=== PATIENT | female | born 2000 | race American Indian/Alaskan Native ===

== ENCOUNTER 2018-07-17 14:03 | Emergency (ER) | payer SELFPAY ==
--- NOTE | 2018-07-17 14:35 | Emergency Department Report ---
Blank Doc - Documentation Documentation: This is a 17-year-old female that presents with umbilical abdominal pain inter mittent for 1 year. Patient stated that pain is getting worse. Patient denies any nausea or vomiting. Denies any other complaints. This initial assessment diagnostic orders/clinical plan/treatment(s) is/are subject to change based on patient's health status, clinical progression and re- assessment by fellow clinical providers in the ED. Further treatment and workup at subsequent clinical providers discretion. Patient/guardians urged not to elope from ED s their condition may be serious if not clinically assessed and managed. Initial orders include: 1-Patient sent to [facility] for further evaluation and treatment 2- labs
[2018-07-17 15:27] LABS: Basophils % (Auto) 0.4 % (0.0-1.8); Eosinophils # (Auto) 0.1 K/mm3 (0.0-0.4); Eosinophils % (Auto) 1.3 % (0.0-4.3); Hematocrit 44.2 % (30.3-42.9); Lymphocytes # (Auto) 2.8 K/mm3 (1.2-5.4); Mean Corpuscular HGB Conc 34 % (30-34); Mean Corpuscular Volume 92 fl (79-97); Monocytes # (Auto) 0.7 K/mm3 (0.0-0.8); Monocytes % (Auto) 7.1 % (0.0-7.3); Platelet Count 294 K/mm3 (140-440); Red Blood Count 4.79 M/mm3 (3.65-5.03); Red Cell Distribution Width 13.7 % (13.2-15.2)
[2018-07-17 16:07] LABS: Alanine Aminotransferase 58 units/L (7-56); Albumin 4.3 g/dL (3.9-5); BUN/Creatinine Ratio 18; Blood Urea Nitrogen 11 mg/dL (7-17); Calcium 9.6 mg/dL (8.4-10.2); Hemolysis Index 18
--- NOTE | 2018-07-17 19:00 | Emergency Department Report ---
ED Abdominal Pain HPI - General Chief Complaint: Abdominal Pain Stated Complaint: STOMACH PAIN Time Seen by Provider: 07/17/18 14:31 Source: patient Mode of arrival: Ambulatory Limitations: No Limitations - History of Present Illness Initial Comments: This is a 17-year-old female that presents to the emergency room with abdominal pain that started yesterday. Patient reports pain is stabbing sensation and is intermittently and lasts for several minutes. She currently reports pain is 3 out of 10 on pain scale. Patient states she was diagnosed with the umbilical hernia when she was 8. She reports never having any issues with it until yesterday. States pain is on the left lower quadrant and near umbilical. She denies nausea, vomiting, diarrhea, dysuria, frequency, urgency, vaginal bleeding, or vaginal discharge. Her last period was 06/13/2018 0. Complaint: abdominal pain Onset/Timin -: days(s) Location: periumbilical Radiation: none Migration to: no migration Severity: mild Severity scale (0 -10): 5 Quality: stabbing Consistency: intermittent Improves With: nothing Worsens With: nothing Associated Symptoms: denies other symptoms - Related Data LMP Date: 06/08/18 Allergies Allergy/AdvReac Type Severity Reaction Status Date / Time No Known Allergies Allergy Unverified 07/17/18 14:37 ED Review of Systems ROS: Stated complaint: STOMACH PAIN Other details as noted in HPI Constitutional: denies: chills, fever Respiratory: denies: cough, shortness of breath, wheezing Cardiovascular: denies: chest pain, palpitations Gastrointestinal: abdominal pain, other (mass near the umbilical and left lower quadrant). denies: nausea, diarrhea Skin: denies: rash, lesions Neurological: denies: headache, weakness, paresthesias Psychiatric: denies: anxiety, depression ED Past Medical Hx - Past Medical History Previous Medical History?: No - Surgical History Past Surgical History?: No - Social History Smoking Status: Current Some Day Smoker Substance Use Type: None ED Physical Exam - General Limitations: No Limitations General appearance: alert, in no apparent distress, obese (morbidly obese) - Respiratory Respiratory exam: Present: normal lung sounds bilaterally. Absent: respiratory distress - Cardiovascular Cardiovascular Exam: Present: regular rate, normal rhythm. Absent: systolic murmur, diastolic murmur, rubs, gallop - GI/Abdominal GI/Abdominal exam: Present: soft, normal bowel sounds, mass (palpable umbilical hernia). Absent: distended, tenderness, guarding, rebound, rigid, organomegaly, bruit, pulsatile mass, hernia - Back Exam Back exam: Present: normal inspection - Neurological Exam Neurological exam: Present: alert, oriented X3, normal gait - Psychiatric Psychiatric exam: Present: normal affect, normal mood - Skin Skin exam: Present: warm, dry, intact, normal color. Absent: rash ED Course Vital Signs 07/17/18 07/17/18 14:35 19:39 Temperature 97.3 F L 97.8 F Pulse Rate 80 63 Respiratory 16 15 Rate Blood Pressure 129/77 106/72 O2 Sat by Pulse 98 99 Oximetry ED Medical Decision Making - Lab Data Result diagrams: 07/17/18 15:17 07/17/18 15:17 Lab Results 07/17/18 07/17/18 07/17/18 Range/Units 15:17 15:17 15:17 WBC 9.3 (4.5-11.0) K/mm3 RBC 4.79 (3.65-5.03) M/mm3 Hgb 15.0 H (10.1-14.3) gm/dl Hct 44.2 H (30.3-42.9) % MCV 92 (79-97) fl MCH 31 (28-32) pg MCHC 34 (30-34) % RDW 13.7 (13.2-15.2) % Plt Count 294 (140-440) K/mm3 Lymph % (Auto) 30.0 (13.4-35.0) % Ford % (Auto) 7.1 (0.0-7.3) % Eos % (Auto) 1.3 (0.0-4.3) % Baso % (Auto) 0.4 (0.0-1.8) % Lymph # 2.8 (1.2-5.4) K/mm3 Ford # 0.7 (0.0-0.8) K/mm3 Eos # 0.1 (0.0-0.4) K/mm3 Baso # 0.0 (0.0-0.1) K/mm3 Seg Neutrophils % 61.2 (40.0-70.0) % Seg Neutrophils # 5.7 (1.8-7.7) K/mm3 Sodium 141 (137-145) mmol/L Potassium 4.4 (3.6-5.0) mmol/L Chloride 102.3 (98-107) mmol/L Carbon Dioxide 25 (22-30) mmol/L Anion Gap 18 mmol/L BUN 11 (7-17) mg/dL Creatinine 0.6 L (0.7-1.2) mg/dL Estimated GFR > 60 ml/min BUN/Creatinine Ratio 18 % Glucose 81 (65-100) mg/dL Calcium 9.6 (8.4-10.2) mg/dL Total Bilirubin 0.40 (0.1-1.2) mg/dL AST 41 H (5-40) units/L ALT 58 H (7-56) units/L Alkaline Phosphatase 111 (35-129) units/L Total Protein 7.4 (6.3-8.2) g/dL Albumin 4.3 (3.9-5) g/dL Albumin/Globulin Ratio 1.4 % HCG, Qual Negative (Negative) - Radiology Data Radiology results: report reviewed EXAM: US ABDOMEN LIMITED HISTORY: palpable mass left lower quadrant TECHNIQUE: Ultrasound abdomen PRIORS: None. FINDINGS: Visualized portions of the liver parenchyma are unremarkable No evidence for cholelithiasis or gallbladder wall thickening. Common bile duct is within normal limits 0.4 centimeters maximum diameter. Right kidney is 11.2 x 5.0 x 4.5 centimeters. No evidence for hydronephrosis Area of concern in left lower quadrant demonstrates no sonographically identifiable abnormality IMPRESSION: Normal No sonographically identified abnormality in area of concern. - Medical Decision Making This is a 17-year-old female presents with left-sided abdominal pain and mass. Patient was examined by me. Vitals are normal and patient is in no acute distress. Obtained a labs and abdominal ultrasound. Liver enzymes elevated. Patient will be instructed to have repeat CMP around 30 days by primary care provider. All of the labs are unremarkable. Ultrasound dictated by radiologist report reviewed by myself. Normal No sonographically identified abnormality in area of concern. Patient informed of results. Referral to primary care provider for continued care. Plan discussed with patient to discharge home and treat outpatient. Patient discharged home in stable condition. Follow up with PCP in 2-3 days. Critical care attestation.: If time is entered above; I have spent that time in minutes in the direct care of this critically ill patient, excluding procedure time. ED Disposition Clinical Impression: Elevated liver enzymes Abdominal pain Qualifiers: Abdominal location: left lower quadrant Qualified Code(s): R10.32 - Left lower quadrant pain Disposition: TO HOME OR SELFCARE Is pt being admited?: No Does the pt Need Aspirin: No Condition: Stable Instructions: Abdominal Pain (ED) Additional Instructions: Have a repeat chemistry labs drawn and one month by primary care provider to monitor liver enzymes. Return to the emergency room if pain increases, nausea, vomiting, and chest pain. Referrals: ASAD BAZAN MD [Primary Care Provider] - 3-5 Days [facility] [Outside] - 3-5 Days [facility] [Outside] - 3-5 Days [facility] [Outside] - 3-5 Days Time of Disposition: 21:47
[2018-07-17 19:43] VITALS: BP 106/72
--- NOTE | 2018-07-17 21:35 | Ultrasound Report ---
FINAL REPORT EXAM: US ABDOMEN LIMITED HISTORY: palpable mass left lower quadrant TECHNIQUE: Ultrasound abdomen PRIORS: None. FINDINGS: Visualized portions of the liver parenchyma are unremarkable No evidence for cholelithiasis or gallbladder wall thickening. Common bile duct is within normal limits 0.4 centimeters maximum diameter. Right kidney is 11.2 x 5.0 x 4.5 centimeters. No evidence for hydronephrosis Area of concern in left lower quadrant demonstrates no sonographically identifiable abnormality IMPRESSION: Normal No sonographically identified abnormality in area of concern.
== END 2018-07-17 21:58 | disposition home or self-care (01) ==
LOC: ED 14:03
DX: R10.32 Left lower quadrant pain (principal); R79.89 Other specified abnormal findings of blood chemistry; F17.200 Nicotine dependence, unspecified, uncomplicated
CPT/HCPCS: 36415; 76705; 80053; 84703; 85025

== ENCOUNTER 2018-11-07 10:01 | Emergency (ER) | payer SELFPAY ==
[2018-11-07 10:08] VITALS: BP 130/75
[2018-11-07 11:04] LABS: Bilirubin,Urine NEG (Negative); Blood,Urine NEG (Negative); Color,Urine Yellow (Yellow); HCG Qualitative,Urine Positive (Negative); Mucus,Urine FEW /HPF; Protein,Urine <15 mg/dL mg/dL (Negative)
--- NOTE | 2018-11-07 13:23 | Ultrasound Report ---
PROCEDURE: US OB <= 14 WEEKS FETUS TECHNIQUE: Early obstetrical ultrasound performed. Transabdominal and transvaginal imaging HISTORY: pelvic cramping and positive home preg test COMPARISON: None FINDINGS: No gestational sac is seen in the uterus. Endometrial thickness is 13 mm. Right ovary measures 2.3 x 2.2 x 1.8 cm. Left ovary measures 3.3 x by 1 4 x 1.9 cm. There is a tiny c yst or follicle in each ovary, larger on the left measures 1.4 cm. No abnormal adnexal mass seen. There is no free fluid. IMPRESSION: There is no visualized intrauterine gestational sac, pelvic free fluid or abnormal adnex al mass. In the setting of a positive test, differential considerations include spontaneous , early nonvisualized intrauterine , and ectopic . Correlate clinically. This document is electronically signed by Noelle Vázquez MD., November 07 2018 01:21:03 PM ET
--- NOTE | 2018-11-07 13:24 | Ultrasound Report ---
PROCEDURE: US OB TRANSVAGINAL TECHNIQUE: Early obstetrical ultrasound performed. Transabdominal and transvaginal imaging HISTORY: pelvic cramping and positive home preg test COMPARISON: None FINDINGS: No gestational sac is seen in the uterus. Endometrial thickness is 13 mm. Right ovary measures 2.3 x 2.2 x 1.8 cm. Left ovary measures 3.3 x by 1 4 x 1.9 cm. There is a tiny c yst or follicle in each ovary, larger on the left measures 1.4 cm. No abnormal adnexal mass seen. There is no free fluid. IMPRESSION: There is no visualized intrauterine gestational sac, pelvic free fluid or abnormal adnex al mass. In the setting of a positive test, differential considerations include spontaneous , early nonvisualized intrauterine , and ectopic . Correlate clinically. This document is electronically signed by Noelle Vázquez MD., November 07 2018 01:21:40 PM ET
--- NOTE | 2018-11-16 11:10 | Emergency Department Report ---
ED Female HPI - General Chief complaint: Abdominal Pain Stated complaint: POSITIVE PREG TEST/CRAMPS/PAIN Time Seen by Provider: 11/07/18 10:46 Source: patient Mode of arrival: Ambulatory Limitations: No Limitations - History of Present Illness MD Complaint: pelvic pain -: days(s) (2) Radiation: non-radiating Severity scale (0 -10): 5 Quality: cramping Consistency: constant Improves with: none Worsens with: none Are you Now?: Yes (took at home preg test unsure of gestational age) Associated Symptoms: denies other symptoms - Related Data Previous Rx's Medication Instructions Recorded Last Taken Type 21/Iron Fu/Folic Acid 1 each PO DAILY #30 tablet 11/07/18 Unknown Rx [ Complete Caplet] Allergies Allergy/AdvReac Type Severity Reaction Status Date / Time No Known Allergies Allergy Verified 11/07/18 10:02 ED Review of Systems ROS: Stated complaint: POSITIVE PREG TEST/CRAMPS/PAIN Other details as noted in HPI Comment: All other systems reviewed and negative ED Past Medical Hx - Past Medical History Previous Medical History?: No - Surgical History Past Surgical History?: No - Social History Smoking Status: Never Smoker Substance Use Type: None - Medications Home Medications: Home Medications Medication Instructions Recorded Confirmed Last Taken Type 21/Iron Fu/Folic Acid 1 each PO DAILY #30 tablet 11/07/18 Unknown Rx [ Complete Caplet] ED Physical Exam - General Limitations: No Limitations General appearance: alert, in no apparent distress - Head Head exam: Present: atraumatic, normocephalic - Eye Eye exam: Present: normal appearance - ENT ENT exam: Present: mucous membranes moist - Neck Neck exam: Present: normal inspection - Respiratory Respiratory exam: Absent: respiratory distress - GI/Abdominal GI/Abdominal exam: Present: soft, tenderness (lower abd pain), normal bowel sounds. Absent: distended, guarding, rebound - Extremities Exam Extremities exam: Present: normal inspection - Back Exam Back exam: Present: normal inspection - Neurological Exam Neurological exam: Present: alert, oriented X3 - Psychiatric Psychiatric exam: Present: normal affect, normal mood - Skin Skin exam: Present: warm, dry, intact, normal color. Absent: rash ED Course Vital Signs 11/07/18 10:07 Temperature 98.2 F Pulse Rate 94 H Respiratory 16 Rate Blood Pressure 130/75 O2 Sat by Pulse 100 Oximetry ED Medical Decision Making - Lab Data Lab Results 11/07/18 11/07/18 Range/Units 10:21 10:56 HCG, Quant 310.8 H (0-4) mIU/mL Urine Color Yellow (Yellow) Urine Turbidity Cloudy (Clear) Urine pH 7.0 (5.0-7.0) Ur Specific Sprague 1.021 (1.003-1.030) Urine Protein <15 mg/dl (Negative) mg/dL Urine Glucose (UA) Neg (Negative) mg/dL Urine Ketones Neg (Negative) mg/dL Urine Blood Neg (Negative) Urine Nitrite Neg (Negative) Urine Bilirubin Neg (Negative) Urine Urobilinogen 2.0 (<2.0) mg/dL Ur Leukocyte Esterase Lg (Negative) Urine WBC (Auto) 7.0 H (0.0-6.0) /HPF Urine RBC (Auto) 3.0 (0.0-6.0) /HPF U Epithel Cells (Auto) 28.0 H (0-13.0) /HPF Urine Mucus Few /HPF Urine HCG, Qual Positive A (Negative) - Medical Decision Making [facility] [address] [place] [address] Ultrasound Report Signed Patient: SUZY NUNEZ MR#: [id number] : 2000 Acct:[id number] Age/Sex: 18 / F ADM Date: 11/07/18 Loc: ED Attending Dr: Ordering Physician: SHANE ZUÑIGA Date of Service: 11/07/18 Procedure(s): US OB transvaginal Accession Number(s): [id number] cc: SHANE ZUÑIGA PROCEDURE: US OB TRANSVAGINAL TECHNIQUE: Early obstetrical ultrasound performed. Transabdominal and transvaginal imaging HISTORY: pelvic cramping and positive home preg test COMPARISON: None FINDINGS: No gestational sac is seen in the uterus. Endometrial thickness is 13 mm. Right ovary measures 2.3 x 2.2 x 1.8 cm. Left ovary measures 3.3 x by 1 4 x 1.9 cm. There is a tiny cyst or follicle in each ovary, larger on the left measures 1.4 cm. No abnormal adnexal mass seen. There is no free fluid. IMPRESSION: There is no visualized intrauterine gestational sac, pelvic free fluid or abnormal adnexal mass. In the setting of a positive test, differential considerations include spontaneous , early nonvisualized intrauterine , and ectopic . Correlate clinically. This document is electronically signed by Noelle Vázquez MD., November 07 2018 01:21:40 PM ET Transcribed By: DONAL Dictated By: NOELLE VÁZQUEZ MD Electronically Authenticated By: NOELLE VÁZQUEZ MD Signed Date/Time: 11/07/18 1324 DD/ 1226 patient too early to give dates for , will need repeat bQuant and US to rule out miscarriage and ectopic pegnancy Critical care attestation.: If time is entered above; I have spent that time in minutes in the direct care of this critically ill patient, excluding procedure time. ED Disposition Clinical Impression: Abdominal pain affecting Qualifiers: Weeks of gestation: less than 8 weeks Qualified Code(s): Z3A.01 - Less than 8 weeks gestation of Disposition: DC-01 TO HOME OR SELFCARE Is pt being admited?: No Does the pt Need Aspirin: No Condition: Stable Instructions: (ED), Abdominal Pain (ED) Prescriptions: 21/Iron Fu/Folic Acid [ Complete Caplet] 1 each PO DAILY #30 tablet Referrals: ASAD BAZAN MD [Primary Care Provider] - 3-5 Days
== END 2018-11-07 14:18 | disposition home or self-care (01) ==
LOC: ED 10:01
DX: O26.891 Other specified pregnancy related conditions, first trimester (principal); R10.2 Pelvic and perineal pain; Z3A.01 Less than 8 weeks gestation of pregnancy
CPT/HCPCS: 36415; 76801; 76817; 81001; 81025; 84702

== ENCOUNTER 2019-02-05 11:54 | Emergency (ER) | payer SELFPAY ==
--- NOTE | 2019-02-05 12:10 | Emergency Department Report ---
Blank Doc - Documentation Documentation: This is a 18-year-old female that presents with RLQ pain with 4 months . Stated had a normal ultrasound during 1 month. This initial assessment/diagnostic orders/clinical plan/treatment(s) is/are subject to change based on patient's health status, clinical progression and re- assessment by fellow clinical providers in the ED. Further treatment and workup at subsequent clinical providers discretion. Patient/guardians urged not to elope from the ED as their condition may be serious if not clinically assessed and managed. Initial orders include: 1- Patient sent to [facility] for further evaluation and treatment 2- US OB state 3- labs 4- UA
[2019-02-05 13:15] LABS: Basophils % (Auto) 0.2 % (0.0-1.8); Eosinophils % (Auto) 0.3 % (0.0-4.3); Hemoglobin 12.5 gm/dl (10.1-14.3); Lymphocytes # (Auto) 1.7 K/mm3 (1.2-5.4); Lymphocytes % (Auto) 15.2 % (13.4-35.0); Mean Corpuscular HGB Conc 35 % (30-34); Mean Corpuscular Volume 93 fl (79-97); Monocytes # (Auto) 0.5 K/mm3 (0.0-0.8); Platelet Count 258 K/mm3 (140-440); Red Blood Count 3.86 M/mm3 (3.65-5.03); Red Cell Distribution Width 13.4 % (13.2-15.2)
[2019-02-05] MEDS ORDERED: NACL 0.9% 1000 ML 1,000 ML IV ONE (13:22)
--- NOTE | 2019-02-05 13:27 | Emergency Department Report ---
ED Abdominal Pain HPI - General Chief Complaint: Abdominal Pain Stated Complaint: ABD PAIN Time Seen by Provider: 02/05/19 12:08 Source: patient Mode of arrival: Ambulatory Limitations: No Limitations - History of Present Illness Initial Comments: 18-year-old female, , 4 months , presents to ED with right flank pain since this morning. Patient states feels like someone is punching her in the right mid back area. States pain radiates down into the right lower quadrant. Patient denies having any leg pain, as triage note reports. Patient reports nausea and vomiting this morning, however is unsure if it is due to her . Patient reports history of chronic UTIs. Denies fever, hematuria, urinary frequency, dysuria. MD Complaint: flank pain -: This morning Location: R flank Radiation: RLQ Severity: moderate Quality: sharp Consistency: intermittent Improves With: nothing Worsens With: nothing Associated Symptoms: nausea, vomiting. denies: diarrhea, fever, dysuria, hematuria - Related Data Previous Rx's Medication Instructions Recorded Last Taken Type 21/Iron Fu/Folic Acid 1 each PO DAILY #30 tablet 11/07/18 Unknown Rx [ Complete Caplet] cephALEXin [Keflex] 500 mg PO Q12HR 5 Days #10 cap 02/05/19 Unknown Rx Allergies Allergy/AdvReac Type Severity Reaction Status Date / Time No Known Allergies Allergy Verified 11/07/18 10:02 ED Review of Systems ROS: Stated complaint: ABD PAIN Other details as noted in HPI Comment: All other systems reviewed and negative Constitutional: denies: chills, fever Respiratory: denies: shortness of breath Gastrointestinal: abdominal pain, nausea, vomiting Genitourinary: denies: dysuria, frequency, hematuria ED Past Medical Hx - Past Medical History Previous Medical History?: No - Surgical History Past Surgical History?: No - Social History Smoking Status: Never Smoker Substance Use Type: None - Medications Home Medications: Home Medications Medication Instructions Recorded Confirmed Last Taken Type 21/Iron Fu/Folic Acid 1 each PO DAILY #30 tablet 11/07/18 Unknown Rx [ Complete Caplet] cephALEXin [Keflex] 500 mg PO Q12HR 5 Days #10 cap 02/05/19 Unknown Rx ED Physical Exam - General Limitations: No Limitations General appearance: alert, in no apparent distress - Head Head exam: Present: atraumatic, normocephalic - Eye Eye exam: Present: normal appearance, PERRL, EOMI - ENT ENT exam: Present: mucous membranes moist - Neck Neck exam: Present: normal inspection - Respiratory Respiratory exam: Present: normal lung sounds bilaterally. Absent: respiratory distress - Cardiovascular Cardiovascular Exam: Present: normal rhythm, tachycardia - GI/Abdominal GI/Abdominal exam: Present: soft. Absent: distended, tenderness - Extremities Exam Extremities exam: Present: normal inspection - Back Exam Back exam: Present: CVA tenderness (R). Absent: CVA tenderness (L) - Neurological Exam Neurological exam: Present: alert, oriented X3 - Psychiatric Psychiatric exam: Present: normal affect, normal mood - Skin Skin exam: Present: warm, dry, intact, normal color ED Course Vital Signs 02/05/19 02/05/19 12:08 15:05 Temperature 98.5 F Pulse Rate 118 H 101 H Respiratory 20 16 Rate Blood Pressure 127/84 Blood Pressure 121/81 [Left] O2 Sat by Pulse 97 99 Oximetry ED Medical Decision Making - Lab Data Result diagrams: 02/05/19 12:59 02/05/19 12:59 - Radiology Data Radiology results: report reviewed, image reviewed - Medical Decision Making - dilatation of right renal collecting system, no stone present - possible kidney stone as cause of pain - UA shows moderate blood, +1 bacteria, urine WBC 2, urine WBC 8 - pain much improved at this time, states she saw something in urine cup, possibly passed stone - US normal - outpt f/u advised - Differential Diagnosis kidney stone, pyelonephritis, gallstone Critical care attestation.: If time is entered above; I have spent that time in minutes in the direct care of this critically ill patient, excluding procedure time. ED Disposition Clinical Impression: Acute flank pain Disposition: - TO HOME OR SELFCARE Is pt being admited?: No Condition: Stable Instructions: Kidney Stones (ED), Flank Pain (ED) Prescriptions: cephALEXin [Keflex] 500 mg PO Q12HR 5 Days #10 cap Referrals: PRIMARY CAREMD [Primary Care Provider] - 3-5 Days GARTH LOTT MD [Staff Physician] - 3-5 Days Time of Disposition: 14:53
--- NOTE | 2019-02-05 13:28 | Ultrasound Report ---
ULTRASOUND OBSTETRIC Indication: pelvic pain r/o ectopic Findings: There is a single intrauterine . BPD = 3.5 cm = 16 weeks, 5 day(s). Head circumference = 13.1 cm = 16 weeks, 5 day(s). Abdominal circumference = 10.8 cm = 16 weeks, 5 day(s). Femur length = 2.2 cm = 16 weeks, 3 day(s). Overall estimated sonographic age = 16 weeks, 5 day(s). heart rate is 147 beats per minute. Estimated weight is 162 grams position is breech. Cervix appears closed. movement is present. Placenta is anterior and grade 0 . Amniotic fluid volume appears normal. Maternal adnexa appear normal. There is mild dilatation of the maternal right renal collecting system Impression: 1. Single living intrauterine with estimated sonographic age of 16 weeks, 5 day(s). Follow -up ultrasound is recommended approximately 20 weeks to evaluate anatomy. 2. No sonographic abnormality identified. Signer Name: Denilson Fuentes MD Signed: 02/05/2019 1:23 PM Workstation Name: [id number]
[2019-02-05 13:35] LABS: Alanine Aminotransferase 63 units/L (7-56); Albumin 3.6 g/dL (3.9-5); BUN/Creatinine Ratio 16; Blood Urea Nitrogen 8 mg/dL (7-17); Calcium 9.3 mg/dL (8.4-10.2); Hemolysis Index 2
[2019-02-05 14:03] LABS: Bacteria,Urine 1+ /HPF (Negative); Bilirubin,Urine NEG (Negative); Blood,Urine MOD (Negative); Color,Urine Yellow (Yellow); Mucus,Urine FEW /HPF; Protein,Urine <15 mg/dL mg/dL (Negative); Urobilinogen,Urine < 2.0 mg/dL (<2.0)
[2019-02-05] MEDS ORDERED: TYLENOL PO ONE (14:06)
[2019-02-05 15:06] VITALS: BP 121/81
== END 2019-02-05 15:05 | disposition home or self-care (01) ==
LOC: ED 11:54
DX: O26.892 Other specified pregnancy related conditions, second trimester (principal); R10.9 Unspecified abdominal pain; O21.9 Vomiting of pregnancy, unspecified; Z79.899 Other long term (current) drug therapy; Z3A.16 16 weeks gestation of pregnancy
CPT/HCPCS: 36415; 76801; 80053; 81001; 84702; 85025; J7030

== ENCOUNTER 2019-07-08 15:43 | Inpatient (IN) | payer OTHER ==
[2019-07-08] MEDS ORDERED: ePHEDrine SULFATE 50 MG/1 ML INJ IV PRN ×2 (16:50→20:04)
[2019-07-08] MEDS ORDERED: TERBUTALINE 1 MG/1 ML INJ SUB-Q PRN (16:50)
--- NOTE | 2019-07-08 17:04 | History and Physical Report ---
History of Present Illness Date of examination: 07/08/19 Date of admission: 07/08/2019 Chief complaint: Contractions History of present illness: 18 year old presents to L&D with regular contractions. Patient received care at [facility] and she brings records with her. LMP 10/12/18. EDC 07/19/2019. significant for obesity, use of marijuana, and use of alcohol early in (prior to patient finding out she was ). labs are as follows: O+, antibody screen negative, rubella immune, hepatitis B surface antigen negative, RPR nonreactive, HIV negative, chlamydia negative, gonorrhea negative, quad screen negative, 1 hour sugar test negative (times 2), GBS positive. Past History Past Medical History: other (obesity, gastritis) Past Surgical History: other (surgery following facial palsy in 2008) IRONER History: denies: chlamydia, gonorrhea, hepatitis B, hepatitis C, herpes, HIV, syphilis, trichomonas Family/Genetic History: diabetes, hypertension Social history: single, smoking (used marijuana during ), full code. denies: prescription drug abuse, IV drug use - Obstetrical History Expected Date of Delivery: 07/19/19 Actual Gestation: 38 Week(s) 3 Day(s) : 1 Para: 0 Hx # Term Pregnancies: 0 Number of Pregnancies: 0 Spontaneous Abortions: 0 Induced : 0 Number of Living Children: 0 Medications and Allergies Allergies Allergy/AdvReac Type Severity Reaction Status Date / Time No Known Allergies Allergy Verified 11/07/18 10:02 Home Medications Medication Instructions Recorded Confirmed Last Taken Type 21/Iron Fu/Folic Acid 1 each PO DAILY #30 tablet 11/07/18 Unknown Rx [ Complete Caplet] cephALEXin [Keflex] 500 mg PO Q12HR 5 Days #10 cap 02/05/19 Unknown Rx Active Meds: Active Medications Ephedrine Sulfate (Ephedrine Sulfate) 10 mg IV Q2M PRN PRN Reason: Hypotension Fentanyl (Sublimaze) 100 mcg IV Q2H PRN PRN Reason: Labor Pain Oxytocin/Sodium Chloride (Pitocin/Ns 20 Unit/1000ml Drip) 20 units in 1,000 mls @ 125 mls/hr IV DIRECT DANY Lactated Ringer's (Lactated Ringers) 1,000 mls @ 125 mls/hr IV DIRECT DANY Ampicillin Sodium (Ampicillin/Ns 2 Gm/100 Ml) 2 gm in 100 mls @ 100 mls/hr IV ONCE ONE; Protocol Stop: 07/08/19 17:49 Lidocaine (Xylocaine 2%) 20 ml INFILTRATI ONCE ONE Stop: 07/08/19 16:51 Terbutaline Sulfate (Brethine) 0.25 mg SUB-Q ONCE PRN PRN Reason: Hyperstimulation/Hypertonicity Review of Systems All systems: negative (contractions) - Vital Signs Vital signs: Vital Signs Pulse Pulse Ox 82 97 07/08/19 15:54 07/08/19 15:54 Temp Pulse Resp BP Pulse Ox 98.2 F 94 H 18 121/70 96 07/08/19 16:34 07/08/19 16:29 07/08/19 16:34 07/08/19 16:27 07/08/19 16:29 - Physical Exam Abdomen: Positive: normal appearance, soft. Negative: distention, tenderness, guarding, rigidity Genitourinary (Female): Positive: normal external genitalia, normal perenium. Negative: perineal/vulvar lesions (no lesions noted on careful exam with bright light upon admission) Vagina: Positive: normal moisture Uterus: Positive: enlarged (S=D) Anus/Rectum: Positive: normal perianal skin Extremities: Positive: normal - Obstetrical FHR: category 1 Uterine Contraction Monitor Mode: External Cervical Dilatation: 4 Cervical Effacement Percentage: 100 station: -1, BBOW Uterine Contraction Pattern: Regular Uterine Contraction Intensity: Moderate Results Result Diagrams: 07/08/19 17:00 All other labs normal. Assessment and Plan A: at 38 weeks, 3 days gestation. Active labor. GBS positive. P: Admit. EFM. GBS prophylaxis.
[2019-07-08 17:13] LABS: Hematocrit 40.1 % (30.3-42.9); Hemoglobin 13.5 gm/dl (10.1-14.3); Mean Corpuscular HGB Conc 34 % (30-34); Mean Corpuscular Volume 89 fl (79-97); Platelet Count 306 K/mm3 (140-440); Red Cell Distribution Width 14.3 % (13.2-15.2)
[2019-07-08] MEDS: LACTATED RINGERS 1,000 ML IV SCH ×3 (17:19→19:36)
[2019-07-08] MEDS: fentaNYL 100 MCG/2 ML INJ IV PRN ×2 (17:30→21:25)
[2019-07-08] MEDS ORDERED: AMPICILLIN/NS 2 GM/100 ML 2 GM/100 ML BAG IV ONE (18:00)
[2019-07-08] MEDS ORDERED: LIDOCAINE (2%) 20 MG/1 ML VIAL 20 ML MDV INFILTRATI ONE ×2 (18:00→21:24)
[2019-07-08] MEDS ORDERED: NALOXONE 2 MG/2 ML INJ IV PRN (20:04)
[2019-07-08] MEDS ORDERED: DEXMEDETOMIDINE 200 MCG/2 ML VIAL IV ONE (20:09)
--- NOTE | 2019-07-08 20:15 | Event Note ---
Date: 07/08/19 Cervix is now 8 cm dilated and patient is receiving epidural.
--- NOTE | 2019-07-08 20:26 | Anesthesia Consultation ---
Anesthesia Consult and Med Hx Date of service: 07/08/19 - Airway Anesthetic Teeth Evaluation: Good ROM Head & Neck: Adequate Mental/Hyoid Distance: Adequate Mallampati Class: Class II Intubation Access Assessment: Probably Good - Pulmonary Exam CTA: Yes - Cardiac Exam Cardiac Exam: RRR - Pre-Operative Health Status ASA Pre-Surgery Classification: ASA2 Proposed Anesthetic Plan: Epidural - Pulmonary Hx Asthma: No - Cardiovascular System Hx Hypertension: No - Central Nervous System Hx Seizures: No Hx Psychiatric Problems: No - Gastrointestinal Hx Gastroesophageal Reflux Disease: Yes - Endocrine Hx Renal Disease: Yes (kidney stones) Hx Hypothyroidism: No Hx Hyperthyroidism: No - Hematic Hx Anemia: No Hx Sickle Cell Disease: No - Other Systems Hx Alcohol Use: No Hx Obesity: Yes
[2019-07-08] MEDS ORDERED: AMPICILLIN/NS 1 GM/50 ML 1 GM/50 ML BAG IV SCH (21:00)
[2019-07-08] MEDS ORDERED: fentaNYL-BUPIV 2 MCG/ML-0.125% 200 MCG/100 ML BAG EPIDURAL SCH (21:00)
[2019-07-08] MEDS: OXYTOCIN 20 UNIT/1000ML DRIP 20 UNITS/1,000 ML BAG IV SCH ×2 (21:08→23:29)
[2019-07-08 21:33] LABS: Alanine Aminotransferase 136 units/L (7-56); Albumin 3.5 g/dL (3.9-5); BUN/Creatinine Ratio 17; Blood Urea Nitrogen 10 mg/dL (7-17); Calcium 9.4 mg/dL (8.4-10.2); Hemolysis Index 12
[2019-07-08 22:38] LABS: Amphetamine Screen,Urine PRESUMPTIVE NEGATIVE; Benzodiazepines Screen,Urine PRESUMPTIVE NEGATIVE; Cannabinoid Screen,Urine PRESUMPTIVE NEGATIVE; Cocaine Screen,Urine PRESUMPTIVE NEGATIVE; Methadone Screen,Urine PRESUMPTIVE NEGATIVE; Opiate Screen,Urine PRESUMPTIVE NEGATIVE
[2019-07-08 22:39] LABS: Bilirubin,Urine NEG (Negative); Blood,Urine SM (Negative); Color,Urine Yellow (Yellow); Mucus,Urine FEW /HPF; Urobilinogen,Urine < 2.0 mg/dL (<2.0)
[2019-07-08] MEDS ORDERED: HYDROcodone/ACETAMINOPHEN 5-325 MG TAB PO PRN (23:04)
[2019-07-08] MEDS ORDERED: WITCH HAZEL/ GLYCERIN PAD TP PRN (23:04)
[2019-07-08] MEDS ORDERED: MAGNESIUM HYDROXIDE (MOM) ORAL LIQD UDC PO PRN (23:04)
[2019-07-08] MEDS ORDERED: LANOLIN/ZINC/DIMETHICONE (LANSINOH) 7 GM TP PRN (23:04)
--- NOTE | 2019-07-08 23:15 | Procedure Note ---
OB Delivery Note - Delivery Date of Delivery: 07/08/19 Surgeon: LADONNA MAGAÑA Estimated blood loss: 300cc - Vaginal Delivery presentation: vertex Delivery position: OA Intrapartum events: meconium, shoulder dystocia Delivery induction: none Delivery augmentation: rupture of membranes (just prior to delivery) Delivery monitor: external FHT, external uterine Route of delivery: Delivery placenta: spontaneous Delivery cord: 3 umbilical vessels Episiotomy: midline Delivery repair: vicryl Anesthesia: epidural Delivery comments: Spontaneous vaginal delivery at 21:03 of liveborn female infant weighing 6 lb 7.6 oz. over 2nd degree midline episiotomy with apgars of 8/9. Meconium stained amniotic fluid. NICU team present for delivery. Left anterior shoulder dystocia; turtle sign noted at delivery. Episiotomy cut, Mega maneuver instituted. Rotation of shoulders attempted but not successful. Shoulder dystocia resolved b y delivery of posterior arm. Baby taken to radiant warmer for evaluation after 3 vessel cord double clamped and cut. Spontaneous cry and respirations. Cord blood obtained. Spontaneous delivery of intact placenta and membranes by faith mechanism. EBL 300 cc. Pitocin to IV fluids after delivery of placenta. 2nd degree midline episiotomy repaired with 2-0 vicryl in usual sterile fashion. Vaginal sweep negative. Sponge count and instrument count correct. Mother and baby stable in birthing room. Baby moving all extremities well and crying vigorously.
[2019-07-08 23:30] LABS: Hepatitis B Surface Antigen Non-Reactive (Negative); Hepatitis C Virus Antibody Non-Reactive (NonReactive)
--- NOTE | 2019-07-08 23:35 | Event Note ---
Date: 07/08/19 LFTs elevated. Platelet count normal. Urinalysis shows 1+ protein. BPs normal (pt. had a few elevated BPs during labor during contractions and prior to epidural; all BPs have been normal since). Consulted with Dr. Valdez re: all of the above. Dr. Valdez states no need for medications at this time; he suggests to monitor vital signs. Discussed all of the above with the patient. Acute hepatitis panel ordered.
[2019-07-09 05:43] LABS: Hematocrit 28.3 % (30.3-42.9); Hemoglobin 9.6 gm/dl (10.1-14.3); Mean Corpuscular HGB Conc 34 % (30-34); Mean Corpuscular Volume 89 fl (79-97); Platelet Count 230 K/mm3 (140-440); Red Blood Count 3.18 M/mm3 (3.65-5.03); Red Cell Distribution Width 14.1 % (13.2-15.2)
--- NOTE | 2019-07-09 09:02 | Post Anesthesia Evaluation ---
- Post Anesthesia Evaluation Patient Participated: Yes Airway Patent: Yes Stable Respiratory Function: Yes Nausea/Vomiting: No Temp > 96.8F: Yes Pain Manageable: Yes Adequeate Hydration: Yes Anesthesia Complications: No Block Receding Appropriately: Yes Patient on Ventilator: No
[2019-07-09] MEDS: IBUPROFEN 600 MG TAB PO SCH ×3 (09:35→23:55)
[2019-07-09] MEDS ORDERED: ACETAMINOPHEN 325 MG TAB PO PRN (10:00)
[2019-07-09] MEDS ORDERED: HYDROcodone/ACETAMINOPHEN 5-325 MG TAB PO PRN (10:00)
[2019-07-09] MEDS ORDERED: diphenhydrAMINE 25 MG CAP PO PRN (10:00)
[2019-07-09] MEDS ORDERED: BENZOCAINE/MENTHOL 20/0.5% TOP SPRAY 56 GM TP PRN (10:00)
[2019-07-09] MEDS ORDERED: WITCH HAZEL/ GLYCERIN PAD TP PRN (10:00)
[2019-07-09 11:06] LABS: Alanine Aminotransferase 98 units/L (7-56); Albumin 2.5 g/dL (3.9-5); BUN/Creatinine Ratio 14; Blood Urea Nitrogen 7 mg/dL (7-17); Calcium 8.6 mg/dL (8.4-10.2); Hemolysis Index 35
[2019-07-09] MEDS: DOCUSATE SODIUM 100 MG CAP PO SCH ×2 (12:45→23:55)
--- NOTE | 2019-07-09 13:05 | Progress Note ---
Assessment and Plan - Patient Problems (1) Status post normal vaginal delivery Current Visit: Yes Status: Acute Plan to address problem: PPD 1 - pain poorly controlled Continue routine orders Anticipate discharge in 24 to 48 hours (2) Single live Current Visit: Yes Status: Acute (3) Discomfort at episiotomy site Current Visit: Yes Status: Acute Plan to address problem: Continue ice packs x24 hours post delivery [place], Dermoplast, Tuck pads, sitz baths prn ordered (4) Leukocytosis Current Visit: Yes Status: Acute Plan to address problem: Afebrile Repeat CBC 07/10/19 (5) Elevated liver enzymes Current Visit: Yes Status: Acute Plan to address problem: AST, ALT decreasing Repeat CMP 07/10/19 GI Consult ordered Subjective - Subjective Date of service: 07/09/19 Principal diagnosis: PPD #1; s/p Interval history: see H&P, Event Notes and OB Delivery Procedure Note Patient reports: appetite normal, voiding normally, pain poorly controlled, ambulating normally, no dizzy ambulation [place]: doing well, other (breast and bottle feeding) Objective - Vital Signs Latest vital signs: Vital Signs Temp Pulse Resp BP BP Pulse Ox 07/09/19 09:43 98.0 F 83 18 111/53 97 07/09/19 00:30 98.6 F 77 16 101/64 07/08/19 23:30 74 108/71 07/08/19 23:25 81 108/65 07/08/19 23:20 73 105/60 07/08/19 23:15 60 102/55 07/08/19 23:10 66 102/63 07/08/19 23:05 73 108/70 07/08/19 23:00 68 114/69 07/08/19 22:55 98 H 121/67 07/08/19 22:51 97 H 118/62 07/08/19 22:35 78 119/56 07/08/19 22:30 86 129/61 07/08/19 22:25 92 H 85/54 07/08/19 22:20 93 H 85/53 07/08/19 22:15 106 H 100/49 07/08/19 22:10 100 H 109/59 07/08/19 22:05 97 H 113/58 07/08/19 22:00 103 H 113/55 07/08/19 21:55 98 H 109/59 07/08/19 21:50 97 H 107/56 07/08/19 21:45 101 H 105/55 07/08/19 21:40 106 H 100/61 07/08/19 21:35 102 H 112/56 07/08/19 21:31 102 H 110/56 07/08/19 20:49 136 H 91 07/08/19 20:46 127 H 98 07/08/19 20:45 142 H 123/57 07/08/19 20:44 95 H 90 07/08/19 20:42 123 H 128/60 100 07/08/19 20:37 122 H 100 07/08/19 20:36 125 H 127/76 07/08/19 20:31 119 H 100 07/08/19 20:30 118 H 129/74 07/08/19 20:27 135 H 100 07/08/19 20:25 122 H 136/86 07/08/19 20:22 129 H 97 07/08/19 20:16 128 H 98 07/08/19 20:10 131 H 96 07/08/19 20:05 120 H 98 07/08/19 20:01 117 H 98 07/08/19 19:57 117 H 141/67 07/08/19 19:56 116 H 98 07/08/19 19:51 124 H 99 07/08/19 19:46 111 H 99 07/08/19 19:27 113 H 146/81 07/08/19 19:12 117 H 138/77 07/08/19 18:27 106 H 130/90 07/08/19 18:12 107 H 135/103 07/08/19 17:57 112 H 125/100 07/08/19 16:34 98.2 F 18 07/08/19 16:29 94 H 96 07/08/19 16:27 74 121/70 94 07/08/19 16:24 82 96 07/08/19 16:19 84 96 07/08/19 16:15 84 94 07/08/19 16:14 86 95 07/08/19 16:10 82 94 07/08/19 16:09 85 94 07/08/19 16:04 105 H 97 07/08/19 15:59 89 97 02/09/20 15:54 82 97 Intake and Output 02/09/20 02/10/20 02/10/20 23:59 07:59 15:59 Intake Total 1285.417 540 Output Total 150 800 Balance 1135.417 -260 Intake: IV 1285.417 Lactated Ringers 1,000 ml 285.417 @ 125 mls/hr IV DIRECT DANY Rx#:[id number] PITOCin/NS 20 UNIT/1000ML 1000 DRIP 20 units In 1,000 ml @ 125 mls/hr IV DIRECT DANY Rx#:[id number] Oral 240 Intake, Free Water 300 Output: Urine 150 800 Indwelling 150 Void 800 Other: Total, Intake Amount 240 Total, Output Amount 800 # Voids Void 1 # Bowel Movements 0 Weight 94.347 kg Estimated Blood Loss 300 - Exam Vulva: both: laceration/episiotomy (well approximated) Uterus: Present: normal, firm, fundal height at umbilicus Extremities: Present: edema (BLE, 1+) Comments: small lochia - Labs Labs: Abnormal lab results 07/08/19 07/08/19 07/09/19 Range/Units 17:00 21:18 05:33 WBC 14.1 H 17.4 H (4.5-11.0) K/mm3 RBC 3.18 L (3.65-5.03) M/mm3 Hgb 9.6 L D (10.1-14.3) gm/dl Hct 28.3 L D (30.3-42.9) % Chloride (98-107) mmol/L Carbon Dioxide 15 L (22-30) mmol/L Creatinine 0.6 L (0.7-1.2) mg/dL Glucose 123 H (65-100) mg/dL AST 98 H (5-40) units/L ALT 136 H (7-56) units/L Alkaline Phosphatase 412 H (35-129) units/L Lactate Dehydrogenase 316 H (91-180) units/L Total Protein (6.3-8.2) g/dL Albumin 3.5 L (3.9-5) g/dL 07/09/19 Range/Units 10:01 WBC (4.5-11.0) K/mm3 RBC (3.65-5.03) M/mm3 Hgb (10.1-14.3) gm/dl Hct (30.3-42.9) % Chloride 107.8 H (98-107) mmol/L Carbon Dioxide 19 L (22-30) mmol/L Creatinine 0.5 L (0.7-1.2) mg/dL Glucose 118 H (65-100) mg/dL AST 85 H (5-40) units/L ALT 98 H (7-56) units/L Alkaline Phosphatase 281 H (35-129) units/L Lactate Dehydrogenase (91-180) units/L Total Protein 5.2 L D (6.3-8.2) g/dL Albumin 2.5 L (3.9-5) g/dL
--- NOTE | 2019-07-09 14:46 | Gastroenterology Consultation ---
<ALICE SPICER - Last Filed: 07/09/19 15:19> History of Present Illness - Reason for Consult Consult date: 07/09/19 elevated LFTs Requesting physician: BETZAIDA SAAVEDRA - History of Present Illness Patient is a 18 y/o female with PMH of obesity, facial palsy (2008) and umbical hernia who is (s/p normal vaginal delivery yesterday) on whom GI has been consulted for elevated LFTs. This afternoon patient was resting in bed w/o acute distress. Currently w/o GI complaints such as abd pain, jaundice, N/V, or LGI symptoms. Admits to heavy alcohol use prior to finding out she was with no alcohol comsumption since 09/2018. No hx of IV drug use, herbal supplements, or new medications. No known Fhx of liver disease. Past History Past Medical History: other (see HPI) Past Surgical History: No surgical history Social history: single, smoking (used marijuana during ), full code. denies: prescription drug abuse, IV drug use Medications and Allergies Allergies Allergy/AdvReac Type Severity Reaction Status Date / Time No Known Allergies Allergy Verified 11/07/18 10:02 Home Medications Medication Instructions Recorded Confirmed Last Taken Type Vitamin 1 tab PO DAILY 07/09/19 07/09/19 07/07/19 10:00 History 1 Ferrous Sulfate [Feosol 325 MG tab] 325 mg PO BID 30 Days #60 tablet 07/10/19 Unknown Rx Active Meds: Active Medications Acetaminophen (Tylenol) 650 mg PO Q4H PRN PRN Reason: Pain MILD(1-3)/Fever >100.5/STOUT Acetaminophen/Hydrocodone Bitart ([place] 5/325) 2 each PO Q6H PRN PRN Reason: Pain, Moderate (4-6) Benzocaine/Menthol (Dermoplast) 1 spray TP PRN PRN PRN Reason: Episiotomy Pain Diphenhydramine HCl (Benadryl) 25 mg PO Q6H PRN PRN Reason: Itching Docusate Sodium (Colace) 100 mg PO BID DANY Ephedrine Sulfate (Ephedrine Sulfate) 10 mg IV Q2M PRN PRN Reason: Hypotension Ferrous Sulfate (Feosol) 325 mg PO BID DANY Oxytocin/Sodium Chloride (Pitocin/Ns 20 Unit/1000ml Drip) 20 units in 1,000 mls @ 125 mls/hr IV DIRECT DANY Last Admin: 07/08/19 23:29 Dose: 1,200 mls/hr Documented by: Lactated Ringer's (Lactated Ringers) 1,000 mls @ 125 mls/hr IV DIRECT DANY Last Admin: 07/08/19 19:36 Dose: 1,200 mls/hr Documented by: Fentanyl/Bupivacaine/Sodium Chlor (Fentanyl-Bupiv 2 Mcg/Ml-0.125%) 200 mcg in 100 mls @ 12 mls/hr EPIDURAL TITR DANY; Protocol Ibuprofen (Ibuprofen) 600 mg PO Q6HR DANY Magnesium Hydroxide (Milk Of Magnesia) 30 ml PO HS PRN PRN Reason: Constipation Multi-Ingredient Ointment (Lansinoh) 1 applic TP PRN PRN PRN Reason: Sore Nipples Naloxone HCl (Naloxone) 0.2 mg IV Q5M PRN PRN Reason: Respiratory sedation Sodium Chloride (Sodium Chloride Flush Syringe 10 Ml) 10 ml IV PRN NR Stop: 07/09/19 23:44 Witch Tenisha/Glycerin (Tucks Pad) 1 each TP PRN PRN PRN Reason: Hemorrhoid/cleansing/soothing medications reviewed/updated as required Review of Systems - Review of Systems All systems: negative Gastrointestinal: no abdominal pain, no nausea, no vomiting, no jaundice Exam - Constitutional Vital Signs: Temp Pulse Resp BP Pulse Ox 97.8 F 95 H 18 114/75 92 07/09/19 12:32 07/09/19 12:32 07/09/19 12:32 07/09/19 12:32 07/09/19 12:32 General appearance: no acute distress, obese - EENT Eyes: PERRL, EOM intact ENT: hearing intact - Respiratory Respiratory effort: normal - Cardiovascular Rhythm: regular - Gastrointestinal General gastrointestinal: Present: soft, non-tender, non-distended, normal bowel sounds - Integumentary Integumentary: Present: warm, dry - Neurologic Neurological: alert and oriented x3 - Labs CBC & Chem 7: 07/09/19 05:33 07/09/19 10:01 Lab Results: Laboratory Results - last 24 hr 07/08/19 07/08/19 07/08/19 17:00 17:00 21:18 WBC 14.1 H RBC 4.50 Hgb 13.5 Hct 40.1 MCV 89 MCH 30 MCHC 34 RDW 14.3 Plt Count 306 Sodium 138 Potassium 4.2 Chloride 103.8 Carbon Dioxide 15 L Anion Gap 23 BUN 10 Creatinine 0.6 L Estimated GFR > 60 BUN/Creatinine Ratio 17 Glucose 123 H Uric Acid Calcium 9.4 Total Bilirubin 0.50 AST 98 H ALT 136 H Alkaline Phosphatase 412 H Lactate Dehydrogenase 316 H Total Protein 6.8 Albumin 3.5 L Albumin/Globulin Ratio 1.1 Urine Color Urine Turbidity Urine pH Ur Specific [place] Urine Protein Urine Glucose (UA) Urine Ketones Urine Blood Urine Nitrite Urine Bilirubin Urine Urobilinogen Ur Leukocyte Esterase Urine WBC (Auto) Urine RBC (Auto) U Epithel Cells (Auto) Urine Mucus Urine Opiates Screen Urine Methadone Screen Ur Barbiturates Screen Ur Phencyclidine Scrn Ur Amphetamines Screen U Benzodiazepines Scrn Urine Cocaine Screen U Marijuana (THC) Screen Drugs of Abuse Note Hepatitis A IgM Ab Hep Bs Antigen Hep B Core IgM Ab Hepatitis C Antibody Blood Type O POSITIVE Antibody Screen Negative 07/08/19 07/08/19 07/08/19 21:18 23:06 Unknown WBC RBC Hgb Hct MCV MCH MCHC RDW Plt Count Sodium Potassium Chloride Carbon Dioxide Anion Gap BUN Creatinine Estimated GFR BUN/Creatinine Ratio Glucose Uric Acid 3.8 Calcium Total Bilirubin AST ALT Alkaline Phosphatase Lactate Dehydrogenase Total Protein Albumin Albumin/Globulin Ratio Urine Color Urine Turbidity Urine pH Ur Specific [place] Urine Protein Urine Glucose (UA) Urine Ketones Urine Blood Urine Nitrite Urine Bilirubin Urine Urobilinogen Ur Leukocyte Esterase Urine WBC (Auto) Urine RBC (Auto) U Epithel Cells (Auto) Urine Mucus Urine Opiates Screen Presumptive negative Urine Methadone Screen Presumptive negative Ur Barbiturates Screen Presumptive negative Ur Phencyclidine Scrn Presumptive negative Ur Amphetamines Screen Presumptive negative U Benzodiazepines Scrn Presumptive negative Urine Cocaine Screen Presumptive negative U Marijuana (THC) Screen Presumptive negative Drugs of Abuse Note Disclamer Hepatitis A IgM Ab Non-reactive Hep Bs Antigen Non-reactive Hep B Core IgM Ab Non-reactive Hepatitis C Antibody Non-reactive Blood Type Antibody Screen 07/08/19 07/09/19 07/09/19 Unknown 05:33 10:01 WBC 17.4 H RBC 3.18 L Hgb 9.6 L D Hct 28.3 L D MCV 89 MCH 30 MCHC 34 RDW 14.1 Plt Count 230 Sodium 139 Potassium 4.0 Chloride 107.8 H Carbon Dioxide 19 L Anion Gap 16 BUN 7 Creatinine 0.5 L Estimated GFR > 60 BUN/Creatinine Ratio 14 Glucose 118 H Uric Acid Calcium 8.6 Total Bilirubin 0.40 AST 85 H ALT 98 H Alkaline Phosphatase 281 H Lactate Dehydrogenase Total Protein 5.2 L D Albumin 2.5 L Albumin/Globulin Ratio 0.9 Urine Color Yellow Urine Turbidity Slightly-cloudy Urine pH 6.0 Ur Specific [place] 1.023 Urine Protein 30 mg/dl Urine Glucose (UA) 150 Urine Ketones 80 Urine Blood Sm Urine Nitrite Neg Urine Bilirubin Neg Urine Urobilinogen < 2.0 Ur Leukocyte Esterase Neg Urine WBC (Auto) 1.0 Urine RBC (Auto) 13.0 U Epithel Cells (Auto) 1.0 Urine Mucus Few Urine Opiates Screen Urine Methadone Screen Ur Barbiturates Screen Ur Phencyclidine Scrn Ur Amphetamines Screen U Benzodiazepines Scrn Urine Cocaine Screen U Marijuana (THC) Screen Drugs of Abuse Note Hepatitis A IgM Ab Hep Bs Antigen Hep B Core IgM Ab Hepatitis C Antibody Blood Type Antibody Screen Assessment and Plan 1.elevated LFTs -chronic transaminitis per chart review (AST 41/ALT 58 06/2018) -abd U/S 06/2008-unremarkable -acute hepatitis panel 07/08/19 negative -etiology unclear-likely / obesity/fatty liver vs other (medications, sepsis, etc) -clinically, patient is stable with LFTs improving. Currently w/o GI complaints such as abd pain or N/V. Tolerating diet -will order abd U/S for further evaluation of liver -avoid hepatotoxic agents -diet as tolerated -continue to trend labs (INR in am) and supportive care -continue alcohol cessation (admits to heavy alcohol use prior to ) -will follow <FOREST MORENO - Last Filed: 07/10/19 16:19> Medications and Allergies Active Meds: Active Medications Acetaminophen (Tylenol) 650 mg PO Q4H PRN PRN Reason: Pain MILD(1-3)/Fever >100.5/STOUT Acetaminophen/Hydrocodone Bitart ([place] 5/325) 2 each PO Q6H PRN PRN Reason: Pain, Moderate (4-6) Last Admin: 07/09/19 12:45 Dose: 2 each Documented by: Benzocaine/Menthol (Dermoplast) 1 spray TP PRN PRN PRN Reason: Episiotomy Pain Last Admin: 07/09/19 17:21 Dose: 1 spray Documented by: Diphenhydramine HCl (Benadryl) 25 mg PO Q6H PRN PRN Reason: Itching Docusate Sodium (Colace) 100 mg PO BID [facility] Last Admin: 07/10/19 12:40 Dose: 100 mg Documented by: Ephedrine Sulfate (Ephedrine Sulfate) 10 mg IV Q2M PRN PRN Reason: Hypotension Ferrous Sulfate (Feosol) 325 mg PO BID [facility] Last Admin: 07/10/19 12:40 Dose: 325 mg Documented by: Oxytocin/Sodium Chloride (Pitocin/Ns 20 Unit/1000ml Drip) 20 units in 1,000 mls @ 125 mls/hr IV DIRECT DANY Last Admin: 07/08/19 23:29 Dose: 1,200 mls/hr Documented by: Lactated Ringer's (Lactated Ringers) 1,000 mls @ 125 mls/hr IV DIRECT [facility] Last Admin: 07/08/19 19:36 Dose: 1,200 mls/hr Documented by: Fentanyl/Bupivacaine/Sodium Chlor (Fentanyl-Bupiv 2 Mcg/Ml-0.125%) 200 mcg in 100 mls @ 12 mls/hr EPIDURAL TITR [facility]; Protocol Ibuprofen (Ibuprofen) 600 mg PO Q6HR [facility] Last Admin: 07/10/19 12:41 Dose: 600 mg Documented by: Magnesium Hydroxide (Milk Of Magnesia) 30 ml PO HS PRN PRN Reason: Constipation Multi-Ingredient Ointment (Lansinoh) 1 applic TP PRN PRN PRN Reason: Sore Nipples Naloxone HCl (Naloxone) 0.2 mg IV Q5M PRN PRN Reason: Respiratory sedation Witch Tenisha/Glycerin (Tucks Pad) 1 each TP PRN PRN PRN Reason: Hemorrhoid/cleansing/soothing Last Admin: 07/09/19 17:20 Dose: 1 each Documented by: Exam - Constitutional Vital Signs: Temp Pulse Resp BP Pulse Ox 98.0 F 72 20 94/58 97 07/10/19 07:27 07/10/19 07:27 07/10/19 07:27 07/10/19 07:27 07/10/19 07:27 - Labs CBC & Chem 7: 07/10/19 05:54 07/10/19 05:54 Lab Results: Laboratory Results - last 24 hr 07/10/19 07/10/19 07/10/19 05:54 05:54 05:54 WBC 11.8 H RBC 3.12 L Hgb 9.2 L Hct 28.2 L MCV 90 MCH 29 MCHC 33 RDW 14.5 Plt Count 239 PT 12.8 INR 0.95 Sodium 138 Potassium 4.2 Chloride 106.9 Carbon Dioxide 21 L Anion Gap 14 BUN 8 Creatinine 0.6 L Estimated GFR > 60 BUN/Creatinine Ratio 13 Glucose 88 Calcium 8.6 Total Bilirubin 0.30 AST 92 H ALT 106 H Alkaline Phosphatase 251 H Total Protein 4.8 L Albumin 2.7 L Albumin/Globulin Ratio 1.3 Assessment and Plan Patient seen and examined; agree with note above. improved liver enzymes, INR normal, no mental status changes. denies jaundice. trend labs and monitor for time being. viral hep serologies negative.
--- NOTE | 2019-07-09 19:49 | Ultrasound Report ---
ULTRASOUND ABDOMEN, COMPLETE INDICATION: elevated LFTs. COMPARISON: None available. FINDINGS: Pancreas: Normal. Abdominal Aorta: Normal. IVC: Normal. Liver: Mildly prominent size measuring 17 cm. Echogenicity is normal. Gallbladder: Normal. Bile ducts: Normal. Common Bile Duct measures 1 mm. Right Kidney: Normal. Left Kidney: Normal. Spleen: Normal. Free fluid: None. Additional Findings: None. IMPRESSION: Mildly prominent hepatic size is likely incidental. Signer Name: Rodney Barajas MD Signed: 07/09/2019 7:45 PM Workstation Name: [id number]
[2019-07-09] MEDS: FERROUS SULFATE 325 MG TAB PO SCH (23:55)
[2019-07-10 06:25] LABS: Hematocrit 28.2 % (30.3-42.9); Hemoglobin 9.2 gm/dl (10.1-14.3); Mean Corpuscular HGB Conc 33 % (30-34); Mean Corpuscular Volume 90 fl (79-97); Platelet Count 239 K/mm3 (140-440); Red Blood Count 3.12 M/mm3 (3.65-5.03); Red Cell Distribution Width 14.5 % (13.2-15.2)
[2019-07-10 06:35] LABS: INR 0.95 (0.87-1.13)
[2019-07-10 06:39] LABS: Alanine Aminotransferase 106 units/L (7-56); Albumin 2.7 g/dL (3.9-5); BUN/Creatinine Ratio 13; Blood Urea Nitrogen 8 mg/dL (7-17); Calcium 8.6 mg/dL (8.4-10.2); Hemolysis Index 2
[2019-07-10] MEDS: IBUPROFEN 600 MG TAB PO SCH ×3 (07:10→22:23)
--- NOTE | 2019-07-10 10:31 | Progress Note ---
Assessment and Plan - Patient Problems (1) Status post normal vaginal delivery Current Visit: Yes Status: Acute Plan to address problem: Continue routine PP orders Anticipate d/c home in 24 -48 hrs (2) Elevated liver enzymes Current Visit: Yes Status: Acute Plan to address problem: GI consult in place Abdominal U/S on chart May d/c home today if cleared by GI (3) Anemia Current Visit: Yes Status: Acute Qualifiers: Anemia type: other cause Other causes of anemia: acute posthemorrhagic Qualified Code(s): D62 - Acute posthemorrhagic anemia Plan to address problem: Asymptomatic Continue daily oral iron supplementation as directed Increase iron rich foods into diet Subjective - Subjective Date of service: 07/10/19 Principal diagnosis: PPD #2; s/p ; Elevated LFTs; Anemia Interval history: See admission H & P; OB delivery summary and PP progress notes Patient reports: appetite normal, voiding normally, flatus, pain poorly controlled, ambulating normally : doing well, bottle feeding Objective - Vital Signs Latest vital signs: Vital Signs Temp Pulse Resp BP Pulse Ox 07/10/19 07:27 98.0 F 72 20 94/58 97 07/10/19 01:15 97.9 F 74 20 102/67 95 07/09/19 17:13 97.8 F 89 18 116/79 96 07/09/19 12:32 97.8 F 95 H 18 114/75 92 Intake and Output 07/09/19 07/10/19 07/10/19 23:59 07:59 15:59 Intake Total 360 0 Output Total 500 Balance 360 -500 Intake: Oral 120 0 Intake, Free Water 240 0 Output: Urine 500 Void 500 Other: Total, Intake Amount 120 0 Total, Output Amount 500 # Voids Void 600 - Exam Breasts: Present: normal Cardiovascular: Present: Regular rate Lungs: Present: Normal air movement Abdomen: Present: soft Uterus: Present: firm, fundal height below umbilicus (U-2) Extremities: Present: normal Deep Tendon Reflex Grade: Normal +2 Incision: Present: other (Midline episiotomy, healing as expected) - Labs Labs: Abnormal lab results 07/09/19 07/10/19 07/10/19 Range/Units 10:01 05:54 05:54 WBC 11.8 H (4.5-11.0) K/mm3 RBC 3.12 L (3.65-5.03) M/mm3 Hgb 9.2 L (10.1-14.3) gm/dl Hct 28.2 L (30.3-42.9) % Chloride 107.8 H (98-107) mmol/L Carbon Dioxide 19 L 21 L (22-30) mmol/L Creatinine 0.5 L 0.6 L (0.7-1.2) mg/dL Glucose 118 H (65-100) mg/dL AST 85 H 92 H (5-40) units/L ALT 98 H 106 H (7-56) units/L Alkaline Phosphatase 281 H 251 H (35-129) units/L Total Protein 5.2 L D 4.8 L (6.3-8.2) g/dL Albumin 2.5 L 2.7 L (3.9-5) g/dL
--- NOTE | 2019-07-10 11:35 | Gastroenterology Progress Note ---
Assessment and Plan 1.elevated LFTs -LFTs stable-chronic transaminitis per chart review (AST 41/ALT 58 06/2018) -INR WNL- preserved synthetic liver function with no evidence with liver failure -abd U/S 06/2008-unremarkable ; repeat U/S yesterday 07/09/19 with mildly prominent size of liver but echogenicity normal -acute hepatitis panel 07/08/19 negative -etiology unclear-possibly /2 obesity/fatty liver vs other (medications, sepsis, etc) -clinically, patient is stable w/o GI complaints -avoid hepatotoxic agents -diet as tolerated -continue to trend labs and supportive care -continue alcohol cessation (admits to heavy alcohol use prior to ) -no further workup recommended at this time per GI standpoint -patient to f/u in clinic upon discharge for further workup -will sign off, please call if needed Subjective Date of service: 07/10/19 Principal diagnosis: elevated LFTs Interval history: Patient resting in bed this am w/o acute distress or GI complaints. Objective - Constitutional Vitals: Temp Pulse Resp BP Pulse Ox 98.0 F 72 20 94/58 97 07/10/19 07:27 07/10/19 07:27 07/10/19 07:27 07/10/19 07:27 07/10/19 07:27 General appearance: no acute distress - EENT Eyes: PERRL, EOM intact - Respiratory Respiratory effort: normal - Cardiovascular Rhythm: regular - Gastrointestinal General gastrointestinal: Present: soft, non-tender, non-distended, normal bowel sounds - Neurologic Neurological: alert and oriented x3 - Labs CBC & Chem 7: 07/10/19 05:54 07/10/19 05:54 Labs: Laboratory Results - last 24 hr 07/10/19 07/10/19 07/10/19 05:54 05:54 05:54 WBC 11.8 H RBC 3.12 L Hgb 9.2 L Hct 28.2 L MCV 90 MCH 29 MCHC 33 RDW 14.5 Plt Count 239 PT 12.8 INR 0.95 Sodium 138 Potassium 4.2 Chloride 106.9 Carbon Dioxide 21 L Anion Gap 14 BUN 8 Creatinine 0.6 L Estimated GFR > 60 BUN/Creatinine Ratio 13 Glucose 88 Calcium 8.6 Total Bilirubin 0.30 AST 92 H ALT 106 H Alkaline Phosphatase 251 H Total Protein 4.8 L Albumin 2.7 L Albumin/Globulin Ratio 1.3
[2019-07-10] MEDS: DOCUSATE SODIUM 100 MG CAP PO SCH ×2 (12:40→22:24)
[2019-07-10] MEDS: FERROUS SULFATE 325 MG TAB PO SCH ×2 (12:40→22:24)
--- NOTE | 2019-07-10 13:48 | Discharge Summary ---
Providers - Providers Date of Admission: 07/08/19 15:44 Date of discharge: 07/10/19 Attending physician: SEN JARQUIN MD 07/09/19 13:27 Consult to Physician [CONS] Routine Comment: Consulting Provider: ALICE SPICER Physician Instructions: Reason For Exam: Elevated Liver Enzymes; state Primary care physician: SEN JARQUIN MD Hospitalization Reason for admission: active labor, IUP at term Delivery: Episiotomy: midline (healing as expected) Laceration: none Other procedures: none complications: none Discharge diagnosis: IUP at term delivered, other (Elevated liver enzymes; Anemia) baby: female Hospital course: See admission H & P; OB delivery summary; PP progress GI consultation notes Condition at discharge: Stable Disposition: DC-01 TO HOME OR SELFCARE - Discharge Diagnoses (1) Status post normal vaginal delivery Status: Acute (2) Elevated liver enzymes Status: Acute (3) Anemia Status: Acute Qualifiers: Anemia type: other cause Other causes of anemia: acute posthemorrhagic Qualified Code(s): D62 - Acute posthemorrhagic anemia Plan - Discharge Medications Prescriptions: Ferrous Sulfate [Feosol 325 MG tab] 325 mg PO BID 30 Days #60 tablet - Provider Discharge Summary Activity: routine, no sex for 6 weeks, no heavy lifting 4 weeks, no strenuous exercise Diet: other (Iron rich diet) Instructions: routine Additional instructions: [] Smoking cessation referral if applicable(refer to patient education folder for contact #) [] Refer to [facility] Book[facility] Call your doctor immediately for: * Fever > 100.5 * Heavy vaginal bleeding ( >1 pad per hour) * Severe persistent headache * Shortness of breath * Reddened, hot, painful area to leg or breast * Drainage or odor from incision. * Keep episiotomy site clean and dry at all times and follow doctor's instructions regarding bathing/showering * Schedule appointment with Gastrointestinal specialist after discharge for further evaluation - Follow up plan Follow up: SEN JARQUIN MD [Primary Care Provider] - 6 Weeks
[2019-07-10 17:04] VITALS: BP 121/68
== END 2019-07-10 22:25 | disposition home or self-care (01) | DRG 806 ==
LOC: TRG 15:43 → LD 15:44 → TRG 15:45 → OB 07-09 00:56
PROVIDERS: ADMIT Obstetrics & Gynecology; ATTEND Obstetrics & Gynecology
PROC: 10E0XZZ Delivery of Products of Conception, External Approach (ICD-10-PCS; principal; 2019-07-08)
PROC: 0W8NXZZ Division of Female Perineum, External Approach (ICD-10-PCS; 2019-07-08)
PROC: 3E0R3BZ Introduction of Anesthetic Agent into Spinal Canal, Percutaneous Approach (ICD-10-PCS; 2019-07-08)
PROC: 00HU33Z Insertion of Infusion Device into Spinal Canal, Percutaneous Approach (ICD-10-PCS; 2019-07-08)
DX: O99.824 Streptococcus B carrier state complicating childbirth (principal); D62 Acute posthemorrhagic anemia; Z37.0 Single live birth; Z3A.38 38 weeks gestation of pregnancy; Z83.3 Family history of diabetes mellitus; Z82.49 Family history of ischemic heart disease and other diseases of the circulatory system; O99.214 Obesity complicating childbirth; E66.9 Obesity, unspecified; O99.62 Diseases of the digestive system complicating childbirth; O77.0 Labor and delivery complicated by meconium in amniotic fluid; O66.0 Obstructed labor due to shoulder dystocia; K21.9 Gastro-esophageal reflux disease without esophagitis; Z87.442 Personal history of urinary calculi; O90.81 Anemia of the puerperium
CPT/HCPCS: 36415; 76700; 80053; 80074; 80307; 81001; 83615; 84550; 85014; 85018; 85027; 85610; 86850; 86900; 86901; 87086; G0378; J0290; J2590; J3010; J3490; J7120